=== PATIENT | male | born 1950 | race Caucasian/White ===

== ENCOUNTER 2022-12-12 10:10 | Outpatient (RCR) | payer MEDICARE, SELFPAY | END 2022-12-13 23:59 | disposition home or self-care (01) | LOC: CR 10:10 | PROVIDERS: Visit Provider Internal Medicine Cardiovascular Disease | DX: I45.3 Trifascicular block (principal); I44.0 Atrioventricular block, first degree; Z95.5 Presence of coronary angioplasty implant and graft; Z51.89 Encounter for other specified aftercare | CPT/HCPCS: S9472 ==

== ENCOUNTER 2023-01-09 09:00 | Outpatient (RCR) | payer MEDICARE, SELFPAY | END 2023-01-10 23:59 | disposition home or self-care (01) | LOC: CR 09:00 | PROVIDERS: Visit Provider Internal Medicine Cardiovascular Disease | DX: I45.3 Trifascicular block (principal); I44.0 Atrioventricular block, first degree; Z51.89 Encounter for other specified aftercare | CPT/HCPCS: S9472 ==

== ENCOUNTER 2023-02-10 08:56 | Outpatient (RCR) | payer MEDICARE, SELFPAY | END 2023-02-10 23:59 | disposition home or self-care (01) | LOC: CR 08:56 | PROVIDERS: Visit Provider Internal Medicine Cardiovascular Disease | DX: I44.0 Atrioventricular block, first degree (principal); I45.3 Trifascicular block; Z95.5 Presence of coronary angioplasty implant and graft | CPT/HCPCS: S9472 ==

== ENCOUNTER 2023-03-10 09:11 | Outpatient (RCR) | payer MEDICARE, SELFPAY | END 2023-03-12 23:59 | disposition home or self-care (01) | LOC: CR 09:11 | PROVIDERS: Visit Provider Internal Medicine Cardiovascular Disease | DX: Z95.5 Presence of coronary angioplasty implant and graft (principal); Z51.89 Encounter for other specified aftercare | CPT/HCPCS: S9472 ==

== ENCOUNTER 2023-04-07 11:08 | Outpatient (RCR) | payer SELFPAY ==
[2023-03-15 15:36] VITALS: BP 143/85; PULSE 76
[2023-03-17 11:00] VITALS: BP 123/64; PULSE 72
[2023-03-22 11:25] VITALS: BP 128/67; PULSE 67
[2023-03-24 11:01] VITALS: BP 147/78; PULSE 68
[2023-03-29 13:35] VITALS: BP 137/76; PULSE 69
[2023-04-05 11:08] VITALS: BP 138/70; PULSE 68
[2023-04-07 11:32] VITALS: BP 135/69; PULSE 71
== END 2023-04-12 23:59 | disposition home or self-care (01) ==
LOC: CR 11:08
PROVIDERS: Visit Provider Internal Medicine Cardiovascular Disease